=== PATIENT | female | born 1995 | race African-American/Black ===

== ENCOUNTER 2016-11-10 00:03 | Inpatient (IN) | payer BC ==
--- NOTE | ~2016-11-10 | HP ---
Unit #: [id number] #: [id number] Patient: FLORENTIN BEEBE [id number] [place] [address] [id number] MR#: [id number] NAME: FLORENTIN BEEBE ROOM: P258 Age: 21 Sex: F Admission Date: 11/10/2016 : 1995 Attending Physician: Gio Meelndez M.D. Admitting Physician: Gio Melendez M.D. Primary Care Physician: Primary Care Physician No HISTORY AND PHYSICAL HISTORY OF PRESENT ILLNESS Florentin is a 21 year old admitted to [address] [place] [address] with psychotic behavior. She remains very psychotic, is a poor historian so her history is taken from her chart. She has had other admissions to this facility for treatment of the same. PAST MEDICAL HISTORY Nothing significant. PAST SURGICAL HISTORY Nothing reported. ALLERGIES No known drug allergies. SOCIAL HISTORY No history of cigarettes or alcohol but she does have a history of using marijuana. FAMILY HISTORY Medically noncontributory. REVIEW OF SYSTEMS She does not answer any questions appropriately. There are no reports of nausea, vomiting or diarrhea. She has had no cough or increased temperature. CURRENT MEDICATIONS 1. Risperdal 1 mg b.i.d. 2. Thorazine 50 mg q.6 h. p.r.n. 3. Milk of Magnesia p.r.n. 4. Maalox p.r.n. 5. Tylenol p.r.n. PHYSICAL EXAMINATION GENERAL: Alert, well-nourished, in no apparent distress. VITAL SIGNS: Blood pressure 122/72, heart rate 88, respirations 16, temperature 98.6. WEIGHT: 195 pounds. HEIGHT: 5'4". SKIN: Warm and dry without rash or lesion. HEENT: Normocephalic. TMs not viewed. Oral and nasal passages clear. Unit #: [id number] #: [id number] Patient: FLORENTIN BEEBE Conjunctivae clear. Pupils equal, round and reactive to light and accommodation. Extraocular movements intact. NECK: Supple without lymphadenopathy or thyromegaly. HEART: Regular rate and rhythm without murmur. LUNGS: Clear. ABDOMEN: Soft, nontender. : Not done. EXTREMITIES: No evidence of cyanosis, clubbing or edema. Moves all extremities without focal deficit. NEUROLOGICAL: Unable to complete extended exam. She does move all extremities without focal deficit. 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 IMPRESSION Psychiatric admission RECOMMENDATIONS PSYCHIATRIC: Per psychiatrist. MEDICAL: I see no contraindications to participating in facility's activities. MEDICAL PROGNOSIS Good. MEDICAL CONDITION Stable. Dictated by... Sandra Herrera P.A.-C. for Radha Storey/mana TD: 11/11/2016 03:00 JOB #: [id number] HISTORY AND PHYSICAL X Sandra Herrera HISTORY AND PHYSICAL
--- NOTE | ~2016-11-10 | PN ---
Unit #: [id number] #: [id number] Patient: FLORENTIN HENSLEY [id number] [facility] [address] [place] [address] [id number] I MR#: [id number] NAME: FLORENTIN HENSLEY ROOM: P258 Age: 21 Sex: F Admission Date: 11/10/2016 : 1995 Attending Physician: Gio Melendez M.D. Admitting Physician: Gio Melendez M.D. Primary Care Physician: Primary Care Physician Aurora ROSAS PROGRESS NOTES DATE November 12, 2016 DISCUSSION Ms. Hensley is a 21-year-old female, who was seen today and chart was reviewed and the case was discussed with the staff. She has been anxious, withdrawn, and rather seclusive to herself. Meanwhile, she has been cooperative with the treatment recommendations and she has been taking the medications and tolerating them fairly well with no reported side effects. MENTAL STATUS EXAMINATION Young female, who was casually dressed with fair personal hygiene and appears to be in no acute distress or discomfort. The patient was awake and alert on interaction with intact orientation. Her mood was anxious with a congruent affect. Her speech is slow and goal-directed. She denies any suicidal or homicidal ideations, and also denies any auditory or visual hallucinations. Her insight and judgment remain significantly impaired. TREATMENT PLAN We will continue her on her current medications and treatment protocol, and will monitor her response, and make further adjustments as needed. Dictated by... Radha Aguilera/dany TD: 11/13/2016 12:49 JOB #: [id number] Unit #: [id number] #: [id number] Patient: FLORENTIN HENSLEY PROGRESS NOTES X Gio Melendez MD PROGRESS NOTE
--- NOTE | ~2016-11-10 | PN ---
Unit #: [id number] #: [id number] Patient: FLORENTIN HENSLEY [id number] [facility] [address] [place] [address] [id number] I MR#: [id number] NAME: FLORENTIN HENSLEY ROOM: 12 Age: 21 Sex: F Admission Date: 11/10/2016 : 1995 Attending Physician: Gio Melendez M.D. Admitting Physician: Gio Melendez M.D. Primary Care Physician: Primary Care Physician Aurora BUNDY NOTES DATE OF SERVICE: 11/15/2016 SUBJECTIVE Ms. Hensley is a 21-year-old female with mood disorder and substance abuse, who was seen today and chart was reviewed and case was discussed with the staff. She yesterday with increasing agitation, aggression, and bizarre behavior and was currently laying on the floor in the middle of the hallway and screaming and yelling and and intramuscular injection of Haldol and Benadryl had to be given to cut down on her psychosis. MENTAL STATUS EXAMINATION Young female who was casually dressed with fair personal hygiene, appears to be in no acute distress or discomfort. She was awake and alert with impaired attention and concentration. Her mood was anxious with a congruent affect. Her speech was slow and tangential. Her thought processes were disorganized with some looseness of associations, flight of ideas, paranoid ideations, and delusional behavior. She denies any auditory or visual hallucinations. Her insight and judgment remain significantly impaired. TREATMENT PLAN 1. We will continue her on her current medications and treatment protocol. We will monitor her response to the medications and make further adjustments as needed. 2. We will continue to follow up. Dictated by... Radha Aguilera/milli TD: 11/16/2016 12:17 JOB #: [id number] Unit #: [id number] #: [id number] Patient: FLORENTIN HENSLEY [facility]ON[facility]ERRAT PROGRESS NOTES X Gio Melendez A MD X PROGRESS NOTE
--- NOTE | ~2016-11-10 | PA ---
Unit #: [id number] #: [id number] Patient: FLORENTIN HENSLEY [id number] [facility] [address] [place] [address] [id number] I MR#: [id number] NAME: FLORENTIN HENSLEY ROOM: P258 Age: 21 Sex: F Admission Date: 11/10/2016 : 1995 Date of Assessment: 11/10/2016 Attending Physician: Gio Melendez M.D. Admitting Physician: Gio Melendez M.D. Primary Care Physician: Primary Care Physician No PSYCHIATRIC ASSESSMENT DATE OF SERVICE 11/10/2016. IDENTIFYING DATA Ms. Hensley is a 21-year-old single female who is a resident of [place], [place] and was brought to the hospital by her mother Kristina Hensley. CHIEF COMPLAINT She has not been acting right. HISTORY OF PRESENT ILLNESS Ms. Hensley is a 21-year-old single female who was brought to the hospital by her mother and upon presentation, she was seen to be out of touch with reality and was looking around and playing with arms, and the patient appears to be responding to internal stimuli and apparently has not been sleeping. The patient's mind is racing and she will start crying and then she will start laughing, and the patient was looking up under the desk and was rocking back and forth and was talking nonsensical, and was sliding down her chair and was rolling her eyes at the staff and was standing looking at the wall and playing with her sweatshirt. Mother reports the patient has disconnected with reality and father reported that it started gradually and mother states the patient is taking 7 classes in school. Mother reports the patient missed a class today and mother reports the patient is in distress and the patient was getting straight A's and reports the patient has been spacey and that she has been crying out and talking funny and has been exhibiting very bizarre behavior. Upon evaluation by me, the patient was in the middle of the hallway, running up and down, and then she would refuse to answer any question and would not even tell me her name and then will start playing with the sweatshirt and starts laughing and then rolling her eyes and moving back and forth at times in circles and overall was seen to be a poor historian and as such, most of the information was obtained from medical records. SUBSTANCE ABUSE HISTORY The patient has a history of occasional experimentation with cannabis. PAST PSYCHIATRIC HISTORY The patient has had history of inpatient psychiatric hospitalization at [facility] in 08/2016 and review of the medical records indicate that currently she is not active in any treatment program and has not been compliant with medications and as such, has been decompensating. Unit #: [id number] #: [id number] Patient: FLORENTIN HENSLEY PAST MEDICAL HISTORY Asthma. ALLERGIES Penicillin. PERSONAL AND SOCIAL HISTORY A 21-year-old female who reports that she is single, unemployed, and lives at home with her mother and father and has fairly decent social support system. MENTAL STATUS EXAMINATION Young female who was casually dressed with fair personal hygiene, appears to be in no acute distress or discomfort. She was awake and alert with impaired attention and concentration. Her mood was anxious and depressed with a congruent affect. Her speech was slow and restricted in content. Her thought processes were disorganized with some looseness of associations and flight of ideas, and paranoid ideations, and delusional behavior. Her insight and judgment remain significantly impaired. DIAGNOSTIC IMPRESSION Psychiatric: Schizoaffective disorder, bipolar type, most recent episode depressed, recurrent, moderate, with psychosis. Medical: Asthma. Stressors: Moderate psychosocial stressors. TREATMENT PLAN 1. The patient has presented with history of chronic mental illness and has been decompensating, and will need inpatient hospitalization for safety and stabilization. We will start her back on her home medications. We will adjust the medications and monitor response. 2. Supportive therapy was provided to the patient. 3. Safe, structured, and nourishing environment will be provided. ESTIMATED LENGTH OF STAY 5 to 7 days. ABILITY TO HELP SELF Limited. WILLINGNESS TO HELP SELF The patient appears to be willing to help self. STRENGTHS 1. Communicative. 2. Cooperative. PROBLEMS 1. Chronic dysphoric symptoms. 2. Poor social support system. DISCHARGE CRITERIA This will be contingent upon the patient's ability to show resolution of her depression and psychosis, and her ability to stay safe to herself, particularly after discharge from the hospital. Unit #: [id number] #: [id number] Patient: FLORENTIN HENSLEY Dictated by... Radha Aguilera/milli TD: 11/11/2016 02:20 JOB #: [id number] PSYCHIATRIC ASSESSMENT X Gio Melendez MD PSYCHIATRIC ASSESSMENT
--- NOTE | ~2016-11-10 | PN ---
Unit #: [id number] #: [id number] Patient: FLORENTIN HENSLEY [id number] [facility] [address] [place] [address] [id number] I MR#: [id number] NAME: FLORENTIN HENSLEY ROOM: 12 Age: 21 Sex: F Admission Date: 11/10/2016 : 1995 Attending Physician: Gio Melendez M.D. Admitting Physician: Gio Melendez M.D. Primary Care Physician: Primary Care Physician Aurora ROSAS PROGRESS NOTES DATE 11/18/2016 DISCUSSION Ms. Hensley is a 21-year-old female who was seen today and chart was reviewed and case was discussed with the staff. She has been anxious, withdrawn and rather seclusive to herself. Meanwhile, she has been cooperative with treatment recommendations as she has been taking the medications and tolerating them fairly well with no reported side effects. MENTAL STATUS EXAMINATION Young female who was casually dressed with fair personal hygiene, appears to be in no acute distress or discomfort. She was awake and alert with intact orientation. Her mood was anxious with congruent affect. She denies any suicidal or homicidal ideations. Also, denies any auditory or visual hallucinations. Her insight and judgement remains slightly impaired. TREATMENT PLAN 1. We will continue her on her current medications and treatment protocol. We will monitor her response to the medication and make further adjustments as needed. 2. We will continue to follow up. Dictated by... Radha Aguilera/mana TD: 11/18/2016 22:09 JOB #: [id number] Unit #: [id number] #: [id number] Patient: FLORENTIN HENSLEY PROGRESS NOTES X Gio Melendez MD PROGRESS NOTE
--- NOTE | ~2016-11-10 | PN ---
Unit #: [id number] #: [id number] Patient: FLORENTIN HENSLEY [id number] [facility] [address] [place] [address] [id number] I MR#: [id number] NAME: FLORENTIN HENSLEY ROOM: 32 Age: 21 Sex: F Admission Date: 11/10/2016 : 1995 Attending Physician: Gio Melendez M.D. Admitting Physician: Gio Melendez M.D. Primary Care Physician: Primary Care Physician Aurora BUNDY NOTES DATE OF SERVICE: 11/13/2016 SUBJECTIVE Ms. Hensley is a 21-year-old female with mood disorder , who was seen today and chart was reviewed and the case was discussed with the staff, who reports that the patient has been acutely psychotic and has been showing some violent outbursts with agitation and aggression and got an intramuscular injection of Haldol last evening due to persistent agitation and aggression take oral medication and as such and then injection of Haldol intramuscular had to be given. Her mother is that the patient when discharged from the hospital was on Seroquel, but mother stopped giving her Seroquel and once the symptoms started appearing, the patient's mother did start her back on Seroquel; however, the patient has a history of poor compliance with treatment recommendations as well as with medications and as such, we will recommend switching her to long-acting injectable antipsychotic, and since she has not shown any tolerability issues with Risperdal, we will recommend initiating Invega Sustenna and we will prefer both the loading doses to be given while the patient is on the unit. Dictated by... Gio Melendez M.D. IAA/modl TD: 11/13/2016 13:54 JOB #: [id number] [facility] BUNDY NOTES Page 1 of 1 X Gio Melendez MD PROGRESS NOTE
--- NOTE | ~2016-11-10 | DS ---
Unit #: [id number] #: [id number] [facility] [id number] [facility] [place] [address] [id number] I MR#: [id number] NAME: FLORENTIN HENSLEY ROOM: [facility] Age: 21 Sex: F Admission Date: 11/10/2016 : 1995 Discharge Date: 11/18/2016 Attending Physician: Gio Melendez M.D. Primary Care Physician: Primary Care Physician No DISCHARGE SUMMARY IDENTIFYING DATA Ms. Hensley is a 21-year-old female, who was brought to the hospital in acute psychotic state. DISCHARGE DIAGNOSES Psychiatric: Chronic paranoid schizophrenia. Medical: None. Stressors: Moderate psychosocial stressors. HISTORY OF PRESENT ILLNESS Please see initial psychiatric evaluation for details. PAST PSYCHIATRIC HISTORY Please see initial psychiatric evaluation for details. PAST MEDICAL HISTORY Please see initial psychiatric evaluation for details. HOSPITAL COURSE The patient was admitted to the adult psychiatric unit at [facility] cherelle Sotelo and was oriented to the hospital environment. Routine p.r.n. medications were initiated, and she was started back on her home medications. Upon initial presentation, the patient was seen to be acutely psychotic and agitated and aggressive and hostile and needed p.r.n. medications and seclusion and has history of poor compliance with medications and outpatient followup and keeping that in mind, she was started on Risperdal, ruling out sensitivity to the molecule of risperidone, she was started on Invega Sustenna long-acting injectable antipsychotic and she was able to receive both the loading doses while in the hospital; followed by which, it was decided that she will be discharged home and will continue treatment on an outpatient basis. DISCHARGE CONDITION Stable. PROGNOSIS Fair. Dictated by... Gio Melendez M.D. IAA/modl Unit #: [id number] #: [id number] Patient: FLORENTIN HENSLEY TD: 01/19/2017 23:25 JOB #: [id number] DISCHARGE SUMMARY Page 1 of 1 X Gio Melendez MD DISCHARGE SUMMARY
--- NOTE | ~2016-11-10 | PN ---
Unit #: [id number] #: [id number] Patient: FLORENTIN HENSLEY [id number] [facility] [address] [place] [address] [id number] MR#: [id number] NAME: FLORENTIN HENSLEY ROOM: P258 Age: 21 Sex: F Admission Date: 11/10/2016 : 1995 Attending Physician: Gio Melnedez M.D. Admitting Physician: Gio Melendez M.D. Primary Care Physician: Primary Care Physician Aruora ROSAS PROGRESS NOTES DATE November 11, 2016 DISCUSSION Ms. Hensley is a young female, who was seen today and chart was reviewed and the case was discussed with the staff. She has been doing better than yesterday and has been calm and getting some sleep but has not been hyperactive as yesterday. MENTAL STATUS EXAMINATION Young female, who was casually dressed with fair personal hygiene and appears to be in no acute distress or discomfort. She was awake and alert with impaired attention and concentration. Her mood was anxious with a congruent affect. The patient denies any suicidal or homicidal ideations. Her insight and judgment remain slightly impaired. TREATMENT PLAN 1. We will continue her on her current medications and treatment protocol, and will monitor her response to the medications, and make further adjustments as needed. 2. We will continue to followup. Dictated by... Radha Aguilera/dany TD: 11/12/2016 13:01 JOB #: [id number] [facility] PROGRESS NOTES X Gio Melendez MD PROGRESS NOTE
--- NOTE | ~2016-11-10 | PN ---
Unit #: [id number] #: [id number] Patient: FLORENTIN HENSLEY [id number] [facility] [address] [place] [address] [id number] MR#: [id number] NAME: FLORENTIN HENSLEY ROOM: 12 Age: 21 Sex: F Admission Date: 11/10/2016 : 1995 Attending Physician: Gio Melendez M.D. Admitting Physician: Gio Melendez M.D. Primary Care Physician: Primary Care Physician Aurora BUNDY NOTES DATE November 16, 2016 DISCUSSION Ms. Hensley is a 21-year-old female, who was seen today and chart was reviewed and the case was discussed with the staff. She appears to be doing somewhat better as she was calmer this morning and did not show any acute agitation or aggression. Meanwhile, she has been taking the medications and tolerating them fairly well with no reported side effects. MENTAL STATUS EXAMINATION Young female, who was casually dressed with fair personal hygiene and appears to be in no acute distress or discomfort. The patient was awake and alert with impaired attention and concentration. Her mood was anxious with a congruent affect. Her speech is slow and tangential. Her thought processes are disorganized with some looseness of associations and flight of ideas. Her insight and judgment remain significantly impaired. TREATMENT PLAN 1. We will continue her on her current medications and treatment protocol, and will monitor her response to the medications, and make further adjustments as needed. 2. We will continue to followup. Dictated by... Radha Aguilera/dany TD: 11/17/2016 06:34 JOB #: [id number] Unit #: [id number] #: [id number] Patient: FLORENTIN HENSLEY PROGRESS NOTES X Gio Melendez MD PROGRESS NOTE
--- NOTE | ~2016-11-10 | PN ---
Unit #: [id number] #: [id number] Patient: FLORENITN HENSLEY [id number] [facility] [address] [place] [address] [id number] MR#: [id number] NAME: FLORENTIN HENSLEY ROOM: 12 Age: 21 Sex: F Admission Date: 11/10/2016 : 1995 Attending Physician: Gio Melendze M.D. Admitting Physician: Gio Melendez M.D. Primary Care Physician: Primary Care Physician Aurora BUNDY NOTES DATE OF SERVICE: 11/17/2016 SUBJECTIVE Ms. Hensley is a 21-year-old female who was seen today and chart was reviewed, and case was discussed with the staff. She has been anxious, withdrawn, and rather seclusive to herself. Meanwhile, she has been cooperative with treatment recommendations and has been taking medications and tolerating them fairly well. MENTAL STATUS EXAMINATION This is a young female who was casually dressed with fair personal hygiene and appears to be in no acute distress or discomfort. She was awake and alert with impaired attention and concentration. Her mood was anxious with a congruent affect. She denies any suicidal or homicidal ideations. Her insight and judgment remain slightly impaired. TREATMENT PLAN 1. We will continue on her current medications and treatment protocol. We will monitor her response to the medications and make further adjustments as needed. 2. We will continue to follow up. Dictated by... Radha Aguilera/derekl TD: 11/18/2016 15:21 JOB #: [id number] [facility] PROGRESS NOTES X Gio Melendez MD PROGRESS NOTE
--- NOTE | ~2016-11-10 | PN ---
Unit #: [id number] #: [id number] Patient: FLORENTIN HENSLEY [id number] [facility] [address] [place] [address] [id number] MR#: [id number] NAME: FLORENTIN HENSLEY ROOM: 12 Age: 21 Sex: F Admission Date: 11/10/2016 : 1995 Attending Physician: Gio Melendez M.D. Admitting Physician: Gio Melendez M.D. Primary Care Physician: Primary Care Physician Aurora BUNDY NOTES DATE 11/14/2016 DISCUSSION Ms. Hensley is a 21-year-old female, who was seen today and chart was reviewed and the case was discussed with the staff. She has been anxious, withdrawn, and rather seclusive to herself. Meanwhile, she has been cooperative with the treatment recommendations and has been taking the medications and tolerating them fairly well with no reported side effects. MENTAL STATUS EXAMINATION Young female, who was casually dressed with fair personal hygiene; appears to be in no acute distress or discomfort. She was awake and alert with impaired attention and concentration. Her mood was anxious with a blunted affect. Her speech is slow and restricted in content. Her thought processes disorganized with some looseness of associations. and delusional behavior, but she also is actively responding to internal stimuli. Her insight and judgment remain significantly impaired. TREATMENT PLAN 1. We will continue her on her current medications and treatment protocol, and will monitor her response, and make further adjustments as needed. 2. We will continue to follow up. Dictated by... Radha Aguilera/salazar TD: 11/15/2016 11:02 JOB #: [id number] Unit #: [id number] #: [id number] Patient: FLORENTIN HENSLEY PROGRESS NOTES X Gio Melendez MD PROGRESS NOTE
[2016-11-12 09:48] LABS: BASOPHIL% 0.7 % (0-2.5); EOSINOPHIL# 0.2 X10e3 (0-0.7); EOSINOPHIL% 4.3 % (0.0-7.0); HEMATOCRIT 37.7 % (35.0-45.0); HEMOGLOBIN 12.2 gm/dL (12.0-16.0); LYMPHOCYTE# 1.6 X10e3 (1.0-3.5); MEAN CELL VOLUME 73.1 FL (83-96); MEAN CORPUSCULAR HEMOGLOBIN 23.7 PG (28-34); MEAN CORPUSCULAR HGB CONC 32.5 g/dL (30-36); MEAN PLATELET VOLUME 9.6 FL (6.5-11.5); MONOCYTE# 0.6 X10e3 (0-1.0); MONOCYTE% 11.8 % (3.0-12.0); NEUTROPHIL# 2.6 X10e3 (1.5-7.1); NEUTROPHIL% 51.2 % (40-75); PLATELET COUNT 184 X10e3 (140-420); RED BLOOD COUNT 5.15 X10e (3.90-5.30); RED CELL DISTRIBUTION WIDTH 13.8 % (11.0-15.5); WHITE BLOOD COUNT 5.1 X10e3 (4.0-10.5)
[2016-11-12 09:56] LABS: DIFF IND NO
[2016-11-12 10:02] LABS: URINE APPEARANCE CLEAR; URINE BILIRUBIN NEG (NEG); URINE BLOOD NEG (NEG); URINE COLOR YELLOW; URINE GLUCOSE NEG (NEG); URINE KETONE 1+ (NEG); URINE LEUKOCYTE ESTERASE TRACE (NEG); URINE NITRATE NEG (NEG); URINE PROTEIN NEG (NEG); URINE SPECIFIC GRAVITY 1.021 (1.003-1.035); URINE UROBILINOGEN 0.2 MG/DL (NEG)
[2016-11-12 10:07] LABS: URBCS1 AUWI 0-2 /[HPF] (0-2); URINE BACTERIA AUWI 1+ (NEGATIVE); URINE SQUAMOUS EPITHELIAL CELL OCC /[HPF]
[2016-11-12 10:47] LABS: AMPHETAMINE NEG (NEG); BARBITURATES NEG (NEG); BENZODIAZEPINES NEG (NEG); COCAINE NEG (NEG); MARIJUANA POS (NEG); OPIATES NEG (NEG); TRICYCLIC ANTIDEPRESSANTS POS (NEG); U METHADONE NEG (NEG)
[2016-11-12 10:53] LABS: ALKALINE PHOSPHATASE 65 U/L (32-92); ALT (SGPT) 15 U/L (10-40); AST (SGOT) 18 U/L (10-42); BILIRUBIN,TOTAL 0.7 mg/dL (0.2-2.0); BLOOD UREA NITROGEN 8 mg/dL (9-23); BUN/CREATININE RATIO 13.33; CALCIUM SERUM 9.3 mg/dL (8.4-10.2); CARBON DIOXIDE 24 mmol/L (22-31); CHLORIDE 103 mmol/L (100-111); CREATININE SERUM 0.6 mg/dL (0.6-1.4); GLOM FILT RATE Estimated ABOVE60 mL/min (>60); GLUCOSE FASTING 83 mg/dL (70-110); PROTEIN TOTAL SERUM 6.8 g/dL (6.0-8.3); SODIUM 136 mmol/L (135-145)
[2016-11-12 10:56] LABS: THYROID STIMULATING HORMONE 0.54 uIU/ml (0.34-5.60)
[2016-11-12 11:05] LABS: FREE THYROXIN (T4) 0.94 ng/dL (0.58-1.64)
== END 2016-11-18 14:15 | disposition home or self-care (01) | DRG 885 ==
LOC: P2L 00:03 → P1S 11-13 12:55 → POF 11-16 14:16 → P1S 11-16 14:19
PROVIDERS: Psychiatry & Neurology Psychiatry
DX: F25.0 Schizoaffective disorder, bipolar type (principal); F31.32 Bipolar disorder, current episode depressed, moderate; J45.909 Unspecified asthma, uncomplicated; Z88.0 Allergy status to penicillin; Z56.0 Unemployment, unspecified
CPT/HCPCS: 80053; 80307; 81003; 84439; 84443; 84703; 85025; J1200; J1630; J2550